=== PATIENT | male | born 1980 | race Caucasian/White ===

== ENCOUNTER 2017-03-09 08:03 | Emergency (ER) | payer SELFPAY | END 2017-03-09 10:30 | disposition left against medical advice (07) | LOC: ER 10:13 | DX: R51 Headache (principal); Z53.21 Procedure and treatment not carried out due to patient leaving prior to being seen by health care provider ==

== ENCOUNTER 2017-04-23 22:44 | Emergency (ER) | payer MEDICAID ==
[~2017-04-23] VITALS: Ht 175.3 cm; Wt 95.0 kg
[2017-04-23] MEDS ORDERED: SODIUM CHLORIDE 0.9% 1,000 ML IV ONE (23:16)
[2017-04-23] MEDS ORDERED: MORPHINE SULFATE 4 MG/ML CPJ (NOT FOR IM USE) IV STA (23:16)
[2017-04-23] MEDS ORDERED: ONDANSETRON HCL 4MG/2ML VIAL IV STA (23:16)
[2017-04-23] MEDS ORDERED: PHENYTOIN SODIUM 1,000 MG in SODIUM CHLORIDE 0.9% 100 ML IV ONE (23:30)
[2017-04-23 23:31] LABS: BASOPHILS % 0.4 % (0.0-2.0); EOSINOPHILS % 0.8 % (0.0-5.0); HEMATOCRIT. 44.3 % (42.0-52.0); HEMOGLOBIN. 15.1 g/dL (14.0-18.0); LYMPHOCYTES % 12.2 % (20.0-50.0); MEAN CORPUSCULAR HEMOGLOBIN 30.8 pg (28.0-32.0); MEAN CORPUSCULAR VOLUME 90.6 fL (80.0-94.0); MEAN PLATELET VOLUME 8.1 fl (7.4-10.4); MONOCYTES % 8.8 % (2.0-8.0); NEUTROPHILS % 77.8 % (40.0-76.0); PLATELET 224 x1000/uL (130-400); RED BLOOD CELL COUNT 4.89 mill/uL (4.7-6.1); RED CELL DISTRIBUTION WIDTH 13.2 % (11.6-14.6)
[2017-04-23 23:39] LABS: CHLORIDE 106 mEq/L (98-107)
[2017-04-23] MEDS ORDERED: MORPHINE SULFATE 4 MG/ML CPJ (NOT FOR IM USE) IV NR (23:45)
[2017-04-23 23:47] LABS: CARBON DIOXIDE 27 mEq/L (21-32)
[2017-04-24] MEDS ORDERED: MORPHINE SULFATE 10 MG/ML CPJ IV NR (00:01)
[2017-04-24] MEDS ORDERED: IOHEXOL-300 100 ML BOTTLE ONE (02:16)
[2017-04-24 03:25] VITALS: BP 150/90
== END 2017-04-24 03:27 | disposition home or self-care (01) ==
LOC: ER 22:57
DX: S06.0X0A Concussion without loss of consciousness, initial encounter (principal); R56.1 Post traumatic seizures; M54.2 Cervicalgia; M54.5 Low back pain; E11.9 Type 2 diabetes mellitus without complications; F17.200 Nicotine dependence, unspecified, uncomplicated; V89.9XXA Person injured in unspecified vehicle accident, initial encounter; Y93.89 Activity, other specified; Y92.89 Other specified places as the place of occurrence of the external cause; Y99.8 Other external cause status
CPT/HCPCS: 36415; 70450; 71010; 71260; 72125; 74177; 80053; 85025; 86850; 86900; 86901; 93005; 96365; 96375; 99285; J1165; J2270; J2405; J7030; Q9967; Z7610; J7050

== ENCOUNTER 2022-01-15 11:02 | Emergency (ER) | payer SELFPAY ==
[~2022-01-15] VITALS: Ht 180.3 cm; Wt 104.0 kg
[2022-01-15] MEDS ORDERED: MORPHINE SULFATE 4 MG/ML CPJ (NOT FOR IM USE) IV STA (11:32)
[2022-01-15] MEDS ORDERED: FAMOTIDINE 20MG/2ML VIAL IV ONE (11:45)
[2022-01-15 12:11] LABS: BASOPHILS % 0.5 % (0.0-2.0); HEMATOCRIT. 40.7 % (42.0-52.0); HEMOGLOBIN. 14.1 g/dL (14.0-18.0); LYMPHOCYTES % 16.7 % (20.0-50.0); MEAN CORPUSCULAR VOLUME 89.7 fL (80.0-94.0); MEAN PLATELET VOLUME 7.9 fl (7.4-10.4); NEUTROPHILS % 70.8 % (40.0-76.0); PLATELET 230 x1000/uL (130-400); RED BLOOD CELL COUNT 4.53 mill/uL (4.7-6.1); RED CELL DISTRIBUTION WIDTH 13.7 % (11.6-14.6)
[2022-01-15 12:23] LABS: CHLORIDE 103 mEq/L (98-107)
[2022-01-15 13:00] VITALS: BP 147/90
== END 2022-01-15 14:50 | disposition left against medical advice (07) ==
LOC: ER 11:02
DX: R07.89 Other chest pain (principal); E11.9 Type 2 diabetes mellitus without complications; F17.210 Nicotine dependence, cigarettes, uncomplicated
CPT/HCPCS: 36415; 71045; 80053; 83880; 84484; 85025; 85610; 93005; 96374; 96375; 99285; J2270; J3490

== ENCOUNTER 2025-01-03 04:13 | Emergency (ER) | payer MEDICAID ==
[~2025-01-03] VITALS: Ht 182.9 cm; Wt 110.7 kg
[2025-01-03 04:20] VITALS: TEMP 37.2; O2SAT 99
[2025-01-03] MEDS: KETOROLAC 15MG/ML VIAL IM ONE (04:37)
[2025-01-03] MEDS ORDERED: LIDO-53 TP (04:42)
[2025-01-03] MEDS ORDERED: NAPR-1176 MT (04:42)
[2025-01-03 04:58] VITALS: BP 180/100; PULSE 90; RESP 14; O2SAT 98
== END 2025-01-03 04:58 | disposition home or self-care (01) ==
LOC: ER 04:13
DX: M70.21 Olecranon bursitis, right elbow (principal); E11.9 Type 2 diabetes mellitus without complications; F10.90 Alcohol use, unspecified, uncomplicated; J45.909 Unspecified asthma, uncomplicated; Z79.1 Long term (current) use of non-steroidal anti-inflammatories (NSAID); Y90.9 Presence of alcohol in blood, level not specified
CPT/HCPCS: 99283; 96372; J1885